=== PATIENT | male | born 1990 | race Caucasian/White ===

== ENCOUNTER → 2024-03-14 09:36 | Outpatient (BNVA) | payer MEDICAID, SELFPAY | PROVIDERS: Family Provider Nurse Practitioner; PCP Nurse Practitioner Family; Visit Provider Nurse Practitioner Family | DX: Z13.1 Encounter for screening for diabetes mellitus (principal); Z00.00 Encounter for general adult medical examination without abnormal findings; Z13.6 Encounter for screening for cardiovascular disorders | CPT/HCPCS: 80053; 80061; 83036; 84443; 85025 ==